=== PATIENT | male | born 1960 | race Caucasian/White ===

== ENCOUNTER 2018-02-20 20:37 | Emergency (ER) | payer OTHER ==
--- OUTSIDE RECORDS SUMMARY | 2018-02-20 20:40 | XMS REPORT | Clinical Summary ---
:1960 Author Organization [facility] Address [address] [place] [address] Phone Care Team Providers Name Role Phone Unavailable Primary Care Provider Unavailable Allergies No Known Allergies Current Medications Prescription Sig. Disp. Refills Start Date End Date Status potassium chloride Take 1 tablet (20 30 tablet 0 09/18/2017 Active SA mEq total) by (K-DUR,KLOR-CON) mouth daily. 20 MEQ tablet fluticasone-salmet Inhale 1 puff by 1 Inhaler 0 09/17/2017 Active valeriano (ADVAIR) mouth via inhaler 100-50 mcg/dose every 12 (twelve) diskus inhaler hours. aspirin 81 MG EC Take 1 tablet (81 30 tablet 0 01/30/2018 Active tablet mg total) by 9 mouth daily. atorvastatin Take 1 tablet (80 30 tablet 0 01/29/2018 Active (LIPITOR) 80 MG mg total) by 9 tablet mouth nightly. carvedilol (COREG) Take 1 tablet 60 tablet 0 01/29/2018 Active 12.5 MG tablet (12.5 mg total) 9 by mouth 2 (two) times daily. eplerenone Take 1 tablet (25 30 tablet 0 01/30/2018 Active (INSPRA) 25 MG mg total) by 9 tablet mouth daily. furosemide (LASIX) Take 1 tablet (20 30 tablet 0 01/30/2018 Active 20 MG tablet mg total) by 9 mouth daily. lisinopril Take 1 tablet (20 30 tablet 0 01/30/2018 Active (PRINIVIL,ZESTRIL) mg total) by 9 20 MG tablet mouth daily. ticagrelor Take 1 tablet (90 60 tablet 0 01/29/2018 Active (BRILINTA) 90 mg mg total) by Tab tablet mouth 2 (two) times daily. oseltamivir Take 75 mg by Discontinued (TAMIFLU) 75 MG mouth 2 (two) 8 capsule times daily. azithromycin Take 1 tablet 5 tablet 0 09/17/2017 (ZITHROMAX) 500 MG (500 mg total) by 8 tablet mouth daily for 5 days Antibiotics for pneumonia. lisinopril Take 1 tablet (10 30 tablet 0 09/17/2017 Discontinued (PRINIVIL,ZESTRIL) mg total) by 8 10 MG tablet mouth daily For blood pressure, heart. aspirin 81 MG EC Take 1 tablet (81 30 tablet 0 09/18/2017 Discontinued tablet mg total) by 8 mouth daily. atorvastatin Take 1 tablet (40 30 tablet 0 09/17/2017 Discontinued (LIPITOR) 40 MG mg total) by 8 tablet mouth nightly For cholesterol. furosemide (LASIX) Take 1 tablet (20 60 tablet 0 09/17/2017 Discontinued 20 MG tablet mg total) by 8 mouth 2 (two) times daily Water pill. predniSONE Take 1 tablet (20 3 tablet 0 09/18/2017 (DELTASONE) 20 MG mg total) by 8 tablet mouth daily for 3 days Steroids for lungs. mometasone-formote Inhale 2 puffs by 1 Inhaler 0 09/17/2017 Discontinued rol (DULERA) 200-5 mouth via inhaler 8 mcg/actuation 2 (two) times inhaler daily. codeine-guaifenesi Take 10 mLs by 120 mL 0 09/17/2017 n (GUAIFENESIN AC) mouth every 6 8 10-100 mg/5 mL (six) hours as liquid needed for Cough for up to 10 days. Max Daily Amount: 40 mLs Active Problems Problem Noted Date JOLYNN (obstructive sleep apnea) 10/23/2017 Overview: Last Assessment & Plan: Pt with JOLYNN on HST with obesity , hyepertension, daytime sleepiness, non restorative sleep Discussed with patient the pathophysiology of sleep apnea, and treatment options Pt agreeable to use CPAP, will order Auto-CPAP @ 7-18 Will follow up with download in 6 weeks, to confirm compliance and adequacy of current settings Pt to call if any difficulties with CPAP use NSTEMI (non-ST elevated myocardial infarction) ([facility]) 2017 Coronary artery disease involving [place] coronary artery of [place] heart 09/16 without angina pectoris Hypertension, essential 09/16/2017 Systolic and diastolic CHF, chronic ([facility]) 09/16/2017 Tobacco abuse 09/16/2017 Severe obesity (BMI 35.0-39.9) ([facility]) 09/16/2017 Resolved Problems Problem Noted Date Resolved Date Chest pain, unspecified type 01/25/2018 02/11/2018 Multifocal pneumonia 09/16/2017 02/11/2018 Infection due to human metapneumovirus (hMPV) 09/16/2017 02/11/2018 Encounters Date Type Specialty Care Team Description 02/11/2018 Office Visit Cardiology Alexandra Mccurdy Chronic combined WHARF HAND systolic (congestive) and diastolic (congestive) heart failure ([facility]) (Primary Dx) 01/26/2018 Procedure Pass 01/26/2018 Surgery Humberto Lin L CATH & PCI MD 01/25/2018 - [facility] Cardiology Eliud Schuster Chest pain, unspecified 01/29/2018 Encounter MD Blu type (Primary Humberto Lin, Dx);Coronary artery MD disease involving [place], [facility] [place] coronary artery D of [place] heart without angina pectoris;Hypertension, essential;Severe obesity (BMI 35.0-39.9) ([facility]);Tobacco abuse;Acute on chronic systolic heart failure ([facility]);JOLYNN (obstructive sleep apnea) 01/25/2018 Orders Only General Internal Medicine 09/15/2017 - [facility] Cardiology Eliud Schuster Severe persistent 09/17/2017 Encounter MD Blu asthma with acute Peng, exacerbation (Primary Magdalena Hughes, Dx);Upper respiratory MD tract infection, Paxton Montiel, unspecified type;Acute MD on chronic systolic heart failure ([facility]);Infection due to human metapneumovirus (hMPV);Multifocal pneumonia;Chronic obstructive pulmonary disease, unspecified COPD type ([facility]);Hypertension, essential;Severe obesity (BMI 35.0-39.9) ([facility]) 09/15/2017 Orders Only General Internal Medicine after 02/19/2017 Social History Tobacco Use Types Packs/Day Years Used Date Former Smoker Quit: 02/11/2003 Smokeless Tobacco: Former User Comments: quitted 12 years ago Alcohol Use Drinks/Week oz/Week Comments Yes rarely Sex Assigned at Date Recorded Not on file Last Filed Vital Signs Vital Sign Reading Time Taken Blood Pressure 125/76 02/11/2018 3:27 PM CDT Pulse 70 02/11/2018 3:27 PM CDT Temperature 35.9 C (96.7 F) 02/11/2018 3:27 PM CDT Respiratory Rate 16 02/11/2018 3:27 PM CDT Oxygen Saturation 98% 02/11/2018 3:27 PM CDT Inhaled Oxygen Concentration - - Weight 124.9 kg (275 lb 4.8 oz) 02/11/2018 3:27 PM CDT Height 182.9 cm (6') 02/11/2018 3:27 PM CDT Body Mass Index 37.34 02/11/2018 3:27 PM CDT Plan of Treatment Health Maintenance Due Date Last Done Comments INFLUENZA VACCINE 05/17/2018 Implants Implanted Type Area Ceiling Cleaner Device Expiration Model / Identifier Date Serial / Lot Promus Premier Stents-C N/A: [employer]ON 09/21/2018 [id number] / Implanted: Qty: 1 on 01/26/2018 by Humberto Lin MD [employer] / [id number] Promus Premier Stents-C N/A: [place] 05/18/2018 [id number] / Implanted: Qty: 1 on 01/26/2018 by [facility]umberto Lin [facility] [employer] [employer] / [id number] Promus Premier Stents-C N/A: [place] 11/22/2018 [id number] / Implanted: Qty: 1 on 01/26/2018 by Humberto Lin MD [facility] [employer] / [id number] Promus Premier Stents-C N/A: [place] 09/13/2018 [id number] / Implanted: Qty: 1 on 01/26/2018 by Humberto Lin MD [facility] [employer] / [id number] Procedures Procedure Name Priority Date/Time Associated Diagnosis Comments L CATH & PCI 01/26/2018 9:31 AM NSTEMI (non-ST CDT elevated myocardial infarction) (HCC) CRITICAL CARE Routine 01/25/2018 4:37 PM Results for this CDT procedure are in the results section. after 02/19/2017 Results VASCULAR DIAGRAM -SCAN (02/10/2018 3:41 PM)Only the most recent of2 resultswithin the time period is included.RHYTHM STRIP - SCAN (02/02/2018 6:20 AM)Only the most recent of3 resultswithin the time period is included.CBC ( Hemogram only) (01/29/2018 3:20 AM)Only the most recent of4 resultswithin the time period is included. Component Value Ref Range WBC 7.8 3.5 - 10.5 K/L RBC 4.80 4.63 - 6.08 M/L Hemoglobin 14.0 13.7 - 17.5 GM/DL Hematocrit 41.0 40.1 - 51.0 % MCV 85.4 79.0 - 92.2 fL MCH 29.2 25.7 - 32.2 pg MCHC 34.1 32.3 - 36.5 GM/DL RDW 13.0 11.6 - 14.4 % Platelets 227 150 - 450 K/CU MM MPV 10.1 9.4 - 12.4 fL nRBC 0 0 - 0 /100 WBC Specimen Performing Laboratory Blood - Arm, [address] [address] Magnesium (01/29/2018 3:20 AM)Only the most recent of6 resultswithin the time period is included. Component Value Ref Range Magnesium 2.3 1.6 - 2.6 mg/dL Specimen Performing Laboratory Blood - Arm, [address] [address] Basic Metabolic Panel (01/29/2018 3:20 AM)Only the most recent of8 resultswithin the time period is included. Component Value Ref Range Sodium 139 136 - 145 meq/L Potassium 3.8 3.5 - 5.1 meq/L Chloride 106 98 - 107 meq/L CO2 24 22 - 29 meq/L BUN 28 (H) 7 - 21 mg/dL Creatinine 0.86 0.57 - 1.25 mg/dL Glucose 123 (H) 70 - 105 mg/dL Calcium 9.1 8.4 - 10.2 mg/dL EGFR 91Comment: ESTIMATED GFR IS NOT ACCURATE mL/min/1.73 sq m CREATININE CLEARANCE IN PREDICTING GLOMERULAR FILTRATION RATE. ESTIMATED GFR IS NOT APPLICABLE FOR DIALYSIS PATIENTS. Specimen Performing Laboratory Blood - Arm, Right [address] [address] CARDIAC CATH REPORT - SCAN (01/27/2018 1:01 PM)POC-Glucose meter (01/26/2018 10 :06 PM) Component Value Ref Range POC-Glucose Meter 91Comment: TESTED AT [address] 70 - 110 mg/dL [id number] Specimen Performing Laboratory Blood [address] [address] ECHOCARDIOGRAM REPORT - SCAN (01/26/2018 6:50 PM)Only the most recent of2 resultswithin the time period is included.POC ACTIVATED CLOTTING TIME (2017 3:19 PM)Only the most recent of5 resultswithin the time period is included. Component Value Ref Range Activated Clotting Time 136Comment: TESTED AT [address] sec [address] Specimen Performing Laboratory Blood [address] [address] 2D Echo W/Doppler(CW/PW/Color) (01/26/2018 2:45 PM)Only the most recent of2 resultswithin the time period is included. Component Value Ref Range Ejection Fraction Specimen Performing Laboratory 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 Clinical History HLD HTN CAD MD (2010) CARDIAC STENTS X2 (2010) S/P CARDIAC STENTS X4 (01/26/18) Contrast Medium: Definity. Height: 72 inches Weight: 119.75 kg (264 lbs) BSA: 2.4 m^2 BMI: 35.8 kg/m^2 HR: 76 bpm BP: 158/92 mmHg Summary The left ventricle is chamber size (by PSLAX dimension) is normal (male - LVIDd 4.2-5.8cm) . Mild concentric LV hypertrophy. The following segment(s) appear akinetic: apex, inferior wall . The other segments are hypokinetic. Global LV systolic function wykeexjg-lx-tmsvnhjf reduced . Estimated LVEF by qualitative assessment is moderately reduced (30-34%) . LV endocardium is adequately visualized with IV ultrasound enhancing agent. No evidence of pericardial effusion. Unable to estimate peak systolic PA pressure; inadequate TR velocity signal. The estimated RA pressure by IVC dynamics 0-5mmHg . Signature Findings Left Ventricle The left ventricle is chamber size (by PSLAX dimension) is normal (male - LVIDd 4.2-5.8cm) . Mild concentric LV hypertrophy. The following segment(s) appear akinetic: apex, inferior wall . The other segments are hypokinetic. Global LV systolic function aphrmfmi-li-nqvkhxdo reduced . Estimated LVEF by qualitative assessment is moderately reduced (30-34%) . LV endocardium is adequately visualized with IV ultrasound enhancing agent. Left AtriumLA size is normal . Right VentricleNormal right ventricle structure and function. Right Atrium Normal right atrium. Aortic Valve Mild AoV cusp thickening. Mitral Valve Mild MV leaflet thickening. Tricuspid ValveA trace of tricuspid regurgitation. Unable to estimate peak systolic PA pressure; inadequate TR velocity signal. AortaAortic root size (SInus of Valsalva diameter) is normal . PericardiumNo evidence of pericardial effusion. IVC/SVC/PA/PV/PleuralThe estimated RA pressure by IVC dynamics 0-5mmHg . Chambers/Structures Left Atrium LA Dimension: 3.54 cmLA Area: 17.35 cm^2 LA Volume: 47.18 ml LA Vol. Index: 20 ml/m^2 Left Ventricle LVIDd: 5.36 cm LV Septum Diastolic: 1.42 cm LV PW Diastolic: 1.31 cm LVOT Diameter: 2.08 cm Aorta Ao Root S of Marcelina.: 3.34 cm Doppler/Quantitative Measurements LVOT Peak Velocity: 1.26 m/s Peak Gradient: 6.31 mmHg Mean Velocity: 0.68 m/s Mean Gradient: 2.3 mmHg LVOT Diameter: 2.08 cmLVOT VTI: 16.77 cm LVOT Area: 3.4 cm^2 LVOT SV:56.95 ml LVOT CO: 4.33 l/min LVOT CI: 1.8 l/min/m^2 Procedure Note Interface, External Ris In - 01/26/2018 6:09 PM CDT Transthoracic Echocardiography Report (TTE) Demographics Patient Name CULLEN JOSUE Date of Study 01/26/2018 EMILY Gender Male Visit Number [id number] Race Room Number [id number] Number Date of 1960 Referring Physician JAX SHETTY Age 57 year(s) 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 Clinical History HLD HTN CAD MD (2010) CARDIAC STENTS X2 (2010) S/P CARDIAC STENTS X4 (01/26/18) Contrast Medium: Definity. Height: 72 inches Weight: 119.75 kg (264 lbs) BSA: 2.4 m^2 BMI: 35.8 kg/m^2 HR: 76 bpm BP: 158/92 mmHg Summary The left ventricle is chamber size (by PSLAX dimension) is normal (male - LVIDd 4.2-5.8cm) . Mild concentric LV hypertrophy. The following segment(s) appear akinetic: apex, inferior wall . The other segments are hypokinetic. Global LV systolic function lbpdxvxv-qv-ixukuhpf reduced . Estimated LVEF by qualitative assessment is moderately reduced (30-34%) . LV endocardium is adequately visualized with IV ultrasound enhancing agent. No evidence of pericardial effusion. Unable to estimate peak systolic PA pressure; inadequate TR velocity signal. The estimated RA pressure by IVC dynamics 0-5mmHg . Signature Findings Left Ventricle The left ventricle is chamber size (by PSLAX dimension) is normal (male - LVIDd 4.2-5.8cm) . Mild concentric LV hypertrophy. The following segment(s) appear akinetic: apex, inferior wall . The other segments are hypokinetic. Global LV systolic function ogjrwnad-ag-ckkqinga reduced . Estimated LVEF by qualitative assessment is moderately reduced (30-34%) . LV endocardium is adequately visualized with IV ultrasound enhancing agent. Left Atrium LA size is normal . Right Ventricle Normal right ventricle structure and function. Right Atrium Normal right atrium. Aortic Valve Mild AoV cusp thickening. Mitral Valve Mild MV leaflet thickening. Tricuspid Valve A trace of tricuspid regurgitation. Unable to estimate peak systolic PA pressure; inadequate TR velocity signal. Aorta Aortic root size (SInus of Valsalva diameter) is normal . Pericardium No evidence of pericardial effusion. IVC/SVC/PA/PV/Pleural The estimated RA pressure by IVC dynamics 0-5mmHg . Chambers/Structures Left Atrium LA Dimension: 3.54 cm LA Area: 17.35 cm^2 LA Volume: 47.18 ml LA Vol. Index: 20 ml/m^2 Left Ventricle LVIDd: 5.36 cm LV Septum Diastolic: 1.42 cm LV PW Diastolic: 1.31 cm LVOT Diameter: 2.08 cm Aorta Ao Root S of Marcelina.: 3.34 cm Doppler/Quantitative Measurements LVOT Peak Velocity: 1.26 m/s Peak Gradient: 6.31 mmHg Mean Velocity: 0.68 m/s Mean Gradient: 2.3 mmHg LVOT Diameter: 2.08 cm LVOT VTI: 16.77 cm LVOT Area: 3.4 cm^2 LVOT SV:56.95 ml LVOT CO: 4.33 l/min LVOT CI: 1.8 l/min/m^2 PT/aPTT (01/26/2018 5:14 AM)Only the most recent of3 resultswithin the time period is included. Component Value Ref Range Protime 14.0 11.7 - 14.7 seconds INR 1.1 <=5.9 PTT 49.4 (H) 22.5 - 36.0 seconds Specimen [place] [address] Narrative RECOMMENDED COUMADIN/WARFARIN INR THERAPY RANGES STANDARD DOSE: 2.0 - 3.0 Includes: PROPHYLAXIS for venous thrombosis, systemic embolization; TREATMENT for venous thrombosis and/or pulmonary embolus. HIGH RISK: Target INR is 2.5-3.5 for patients with mechanical heart valves. Troponin I (01/26/2018 5:14 AM)Only the most recent of6 resultswithin the time period is included. Component Value Ref Range Troponin I 1.57 (HH) 0.00 - 0.03 ng/mL Specimen Performing Laboratory Blood [address] [address] Narrative Troponin I (TnI) levels must be interpreted in the context of the presenting symptoms and the clinical findings. Elevated TnI levels indicate myocardial damage, but are not specific for ischemic heart disease. Elevated TnI levels are seen in patients with other cardiac conditions (including myocarditis and congestive heart failure), and slight TnI elevations occur in patients with other conditions, including sepsis, renal failure, acidosis, acute neurological disease, and persistent tachyarrhythmia. Critical Care (01/25/2018 4:37 PM) Narrative Eliud Schuster MD 01/25/20184:37 PM Critical Care Performed by: ELIUD SCHUSTER Authorized by: ELIUD SCHUSTER Total critical care time: 42 minutes Critical care time was exclusive of separately billable procedures and treating other patients and teaching time. Critical care was necessary to treat or prevent imminent or life-threatening deterioration of the following conditions: circulatory failure and cardiac failure. Critical care was time spent personally by me on the following activities: development of treatment plan with patient or surrogate, discussions with consultants, discussions with primary provider, interpretation of cardiac output measurements, evaluation of patient's response to treatment, examination of patient, obtaining history from patient or surrogate, ordering and performing treatments and interventions, ordering and review of laboratory studies, ordering and review of radiographic studies, pulse oximetry, re-evaluation of patient's condition and review of old charts. XR chest 1 view portable/bedside (01/25/2018 3:40 PM)Only the most recent of2 resultswithin the time period is included. Specimen Performing Laboratory GE RIS Narrative FINAL REPORT Chest, 1 view, 01/25/2018 3:41 PM. History: Chest pain. Comparison: 2017. Discussion:The cardiomediastinal silhouette and pulmonary vasculature are within normal limits for a portable exam. The lungs are clear without evidence of consolidation or effusion.Multiple old left rib fractures are again noted. IMPRESSION: No acute cardiopulmonary abnormality. Signed: Eliud Harper MD Report Verified Date/Time:01/25/2018 15:49:11 Reading Location: [facility] Mammo Reading Room Procedure Note Interface, External Ris In - 01/25/2018 3:51 PM CDT FINAL REPORT Chest, 1 view, 01/25/2018 3:41 PM. History: Chest pain. Comparison: 2017. Discussion: The cardiomediastinal silhouette and pulmonary vasculature are within normal limits for a portable exam. The lungs are clear without evidence of consolidation or effusion. Multiple old left rib fractures are again noted. IMPRESSION: No acute cardiopulmonary abnormality. Signed: Eliud Harper MD Report Verified Date/Time: 01/25/2018 15:49:11 Reading Location: [facility] Mammo Reading Room with platelet count + automated diff (01/25/2018 3:03 PM)Only the most recent of4 resultswithin the time period is included. Component Value Ref Range WBC 7.5 3.5 - 10.5 K/L RBC 5.54 4.63 - 6.08 M/L Hemoglobin 16.0 13.7 - 17.5 GM/DL Hematocrit 47.4 40.1 - 51.0 % MCV 85.6 79.0 - 92.2 fL MCH 28.9 25.7 - 32.2 pg MCHC 33.8 32.3 - 36.5 GM/DL RDW 13.1 11.6 - 14.4 % Platelets 258 150 - 450 K/CU MM MPV 9.6 9.4 - 12.4 fL nRBC 0 0 - 0 /100 WBC % Neutros 57 % % Lymphs 31 % % Monos 9 % % Eos 2 % % Baso 1 % # Neutros 4.30 1.78 - 5.38 K/L # Lymphs 2.36 1.32 - 3.57 K/L # Monos 0.69 0.30 - 0.82 K/L # Eos 0.12 0.04 - 0.54 K/L # Baso 0.05 0.01 - 0.08 K/L Immature Granulocytes-Relative 0 0 - 1 % Specimen Performing Laboratory Blood - Arm, [address] [address] CBC with platelet count + automated diff (01/25/2018 3:03 PM)Only the most recent of4 resultswithin the time period is included. Specimen Performing Laboratory Blood Narrative The following orders were created for panel order CBC with platelet count + automated diff. Procedure Abnormality Status --------- ------ CBC with platelet count ...[[id number]]Final result Please view results for these tests on the individual orders. B-type Natriuretic Factor (BNP) (01/25/2018 3:03 PM)Only the most recent of2 resultswithin the time period is included. Component Value Ref Range BNP 148 (H) 0 - 100 pg/mL Specimen Performing Laboratory Blood - Arm, [address] [address] ECG 12 lead (01/25/2018 2:39 PM)Only the most recent of2 resultswithin the time period is included. Specimen Performing Laboratory GE MUSE Narrative Ventricular Rate 76 BPM Atrial Rate 76 BPM P-R Interval 182 ms QRS Duration 160 ms Q-T Interval 442 ms QTC Calculation(Bazett) 497 ms P [place] 41 degrees R [place] -28 degrees T [place] 180 degrees Normal sinus rhythm Left bundle branch block Prolonged QT Abnormal ECG When compared with ECG of 15-SEP-2017 17:38, Ventricular rate has decreased from [address] more elevated now anterior leads Confirmed by MD TOBAR YOCHAI ([id number]) on 01/26/2018 6:25:26 AM Procedure Note Interface, External Ris In - 01/26/2018 6:25 AM CDT Ventricular Rate 76 BPM Atrial Rate 76 BPM P-R Interval 182 ms QRS Duration 160 ms Q-T Interval 442 ms QTC Calculation(Bazett) 497 ms P [place] 41 degrees R [place] -28 degrees T [place] 180 degrees Normal sinus rhythm Left bundle branch block Prolonged QT Abnormal ECG When compared with ECG of 15-SEP-2017 17:38, Ventricular rate has decreased from [address] more elevated now anterior leads Confirmed by MD TOBAR YOCHAI ([id number]) on 01/26/2018 6:25:26 AM Sputum Culture + Gram Stain (09/17/2017 10:15 AM) Component Value Ref Range Result Oropharyngeal contamination, specimen rejected. Recollect requested. Gram Stain Result 1+ WBCs Gram Stain Result 2+ gram variable coccobacilli Specimen Performing Laboratory Sputum - Expectorated [address] [address] Hepatic function panel (09/17/2017 4:28 AM) Component Value Ref Range Protein, Total 6.6 6.0 - 8.3 gm/dL Albumin 3.6 3.5 - 5.0 g/dL Total Bilirubin 0.6 0.2 - 1.2 mg/dL Bilirubin, Direct 0.2 0.1 - 0.5 mg/dL Alkaline Phosphatase 43 40 - 150 U/L AST 51 (H) 5 - 34 U/L ALT 62 (H) 6 - 55 U/L Specimen Performing Laboratory Blood - Arm, Left [address] [address] Creatine Kinase (CK), Total and MB (09/16/2017 5:26 AM)Only the most recent of3 resultswithin the time period is included. Component Value Ref Range Total CK 428 (H) 29 - 200 U/L CK-MB 1.0 0.0 - 6.6 ng/mL MB Relative Index 0.2 % Specimen Performing Laboratory Blood - Arm, Right [address] [address] Narrative CK-MB Reference Range: <6.7Normal 6.7-10.0Borderline >10.0 Abnormal Respiratory Panel [facility] (09/16/2017 2:33 AM) Component Value Ref Range Human Metapneumovirus Detected (A) Not detected, Inconclusive Rhinovirus Not detected Not detected, Inconclusive Influenza A Not detected Not detected, Inconclusive Influenza A subtype H1 Not detected Not detected, Inconclusive Influenza A Subtype H3 Not detected Not detected, Inconclusive Influenza A Subtype H1-2009 Not detected Not detected, Inconclusive Influenza B Not detected Not detected, Inconclusive Respiratory Syncytial Virus Not detected Not detected, Inconclusive Parainfluenza Virus 1 Not detected Not detected, Inconclusive Parainfluenza Virus 2 Not detected Not detected, Inconclusive Parainfluenza virus 3 Not detected Not detected, Inconclusive Parainfluenza Virus 4 Not detected Not detected, Inconclusive Adenovirus Not detected Not detected, Inconclusive Coronavirus 229E Not detected Not detected, Inconclusive Coronavirus HKU1 Not detected Not detected, Inconclusive Coronavirus NL63 Not detected Not detected, Inconclusive Coronavirus OC43 Not detected Not detected, Inconclusive Bordetella Pertussis Not detected Not detected, Inconclusive Chlamydophila Pneumoniae Not detected Not detected, Inconclusive Mycoplasma Pneumoniae Not detected Not detected, Inconclusive Specimen Performing Laboratory Nasopharyngeal [address] [address] [address] chest for pulmonary embolus (09/16/2017 12:48 AM) Specimen Performing Laboratory [facility] (formerly [facility] RIS Narrative FINAL REPORT CT, CHEST WITH IV CONTRAST- PE TEST DESIGN INDICATION: "dyspnea" COMPARISON: None TECHNIQUE: Contrast enhanced CT examination of the chest in the pulmonary arterial phase from the bases to the apices. Orthogonal reformatted images as well as coronal maximum intensity projection images were obtained. DOSE REDUCTION: Dose modulation, iterative reconstruction, and/or weight-based adjustment of the mA/kV was utilized to reduce the radiation dose to as low as reasonably achievable. FINDINGS: No pulmonary embolism. Cardiomegaly. No pathologic adenopathy in the chest per CT size criteria. Multiple tree-in-bud opacities in the lungs, worse in the inferior portion of the right upper lobe and left upper lobe. More consolidative changes present in the left upper lobe with air bronchograms. Findings are compatible with a multifocal bronchopneumonia. Visualized portion of the upper abdomen shows no acute abnormality. Hepatic steatosis. Multiple remote left-sided rib fractures. IMPRESSION: No pulmonary embolism. Multifocal bilateral bronchopneumonia. 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 Orthogonal reformatted images as well as coronal maximum intensity projection images were obtained. DOSE REDUCTION: Dose modulation, iterative reconstruction, and/or weight-based adjustment of the mA/kV was utilized to reduce the radiation dose to as low as reasonably achievable. FINDINGS: No pulmonary embolism. Cardiomegaly. No pathologic adenopathy in the chest per CT size criteria. Multiple tree-in-bud opacities in the lungs, worse in the inferior portion of the right upper lobe and left upper lobe. More consolidative changes present in the left upper lobe with air bronchograms. Findings are compatible with a multifocal bronchopneumonia. Visualized portion of the upper abdomen shows no acute abnormality. Hepatic steatosis. Multiple remote left-sided rib fractures. IMPRESSION: No pulmonary embolism. Multifocal bilateral bronchopneumonia. Signed: Mariluz May MD Report Verified Date/Time: 09/16/2017 01:07:05 Reading Location: [facility] B1 C013X Ortho Consult Reading Room D-dimer (09/15/2017 11:56 PM) Component Value Ref Range D-Dimer, Quant 1.33 (H) <0.50 MG/L FEU Specimen Performing Laboratory [place] [address] Narrative Intended Use: The D-Dimer Assay can be used to aid in the diagnosis of Deep Vein Thrombosis (DVT) and Pulmonary Embolism Disease (PED). In patients with low pre-test probability, various studies concerning STA Liatest D-dimer test have reported that with a cutoff value of 0.50 MG/L FEU, the Negative Predictive Value (NPV) regarding the exclusion of thrombosis is within 95-100% range. Legionella antigen, urine (09/15/2017 11:46 PM) Component Value Ref Range Legionella Urine Antigen Negative - see commentComment: Negative for L. pneumophila serogroup 1 antigen, suggesting no recent or current infection with this serogroup. Legionellosis cannot be ruled out since other serogroups and species may cause disease. Specimen [place] [address] Urinalysis w/ Microscopic (09/15/2017 11:46 PM) Component Value Ref Range Color, UA Yellow Clarity, UA Hazy Specific [place], UA 1.024 1.001 - 1.035 pH, UA 6.0 5.0 - 8.0 Protein, UA 50 mg/dL (A) Negative Glucose, UA Negative Negative Ketones, UA 10 mg/dL (A) Negative Bilirubin, UA Negative Negative Blood, UA Negative Negative Nitrite, UA Negative Negative Leukocytes, UA Negative Negative Urobilinogen, UA 8.0 (H) 0.2 - 1.0 mg/dL RBC, UA 0 /HPF WBC, UA 1 /HPF Mucus Many Amorphous Crystals Rare Specimen Source Specimen [place] [address] Blood culture (09/15/2017 10:04 PM)Only the most recent of2 resultswithin the time period is included. Component Value Ref Range Result No growth in 5 days Specimen Performing Laboratory Blood - Arm, Right [place] [id number] Influenza antigen A & B (Rapid) (09/15/2017 6:43 PM) Component Value Ref Range Rapid Influenza A Antigen Negative Negative, Inconclusive Rapid influenza B Antigen Negative Negative, Inconclusive Specimen Performing Laboratory Nasopharyngeal [place] [address] after 02/19/2017
--- OUTSIDE RECORDS SUMMARY | 2018-02-20 20:41 | XMS REPORT ---
:1960 Author Organization [facility] Address [address] [place] [address] Care Team Providers Name Role Phone ELIUD SCHUSTER Unavailable Unavailable Problems This patient has no known problems. Allergies, Adverse Reactions, Alerts This patient has no known allergies or adverse reactions. Medications This patient has no known medications. Results Test Description Test Time Test Comments Text Results Atomic Results Result Comments MAGNESIUM 2018-01-29 05:33:00 Test Item Value Reference Range Comments MAGNESIUM (BEAKER) (test hest=719) 2.3 mg/dL 1.6-2.6 BASIC METABOLIC [id number] 05:33:00 Test Item Value Reference Range Comments SODIUM (BEAKER) (test 139 meq/L 136-145 oskk=242) POTASSIUM (BEAKER) (test 3.8 meq/L 3.5-5.1 ltan=308) CHLORIDE (BEAKER) (test 106 meq/L 98-107 xsmj=945) CO2 (BEAKER) (test 24 meq/L 22-29 rioh=196) BLOOD UREA NITROGEN 28 mg/dL 7-21 (BEAKER) (test pcxf=443) CREATININE (BEAKER) (test 0.86 mg/dL 0.57-1.25 yhlv=446) GLUCOSE RANDOM (BEAKER) 123 mg/dL 70-105 (test pxvr=950) CALCIUM (BEAKER) (test 9.1 mg/dL 8.4-10.2 szqe=562) EGFR (BEAKER) (test 91 mL/min/1.73 sq m ESTIMATED GFR IS NOT hejb=3109) ACCURATE CREATININE CLEARANCE IN PREDICTING GLOMERULAR FILTRATION RATE. ESTIMATED GFR IS NOT APPLICABLE FOR DIALYSIS PATIENTS. CBC (HEMOGRAM ONLY)2018-01-29 05:08:00 Test Item Value Reference Range Comments WHITE BLOOD CELL COUNT (BEAKER) (test wtrp=579) 7.8 K/ L 3.5-10.5 RED BLOOD CELL COUNT (BEAKER) (test kbkn=963) 4.80 M/ L 4.63-6.08 HEMOGLOBIN (BEAKER) (test rlaq=144) 14.0 GM/DL 13.7-17.5 HEMATOCRIT (BEAKER) (test gxfe=566) 41.0 % 40.1-51.0 MEAN CORPUSCULAR VOLUME (BEAKER) (test tvbq=261) 85.4 fL 79.0-92.2 MEAN CORPUSCULAR HEMOGLOBIN (BEAKER) (test 29.2 pg 25.7-32.2 raqk=495) MEAN CORPUSCULAR HEMOGLOBIN CONC (BEAKER) (test 34.1 GM/DL 32.3-36.5 xfpa=746) RED CELL DISTRIBUTION WIDTH (BEAKER) (test 13.0 % 11.6-14.4 fsqy=983) PLATELET COUNT (BEAKER) (test qqov=027) 227 K/CU MM 150-450 MEAN PLATELET VOLUME (BEAKER) (test lmbd=531) 10.1 fL 9.4-12.4 NUCLEATED RED BLOOD CELLS (BEAKER) (test 0 /100 WBC 0-0 nrsu=895) [id number] 05:59:00 Test Item Value Reference Range Comments MAGNESIUM (BEAKER) (test tyfn=129) 2.4 mg/dL 1.6-2.6 BASIC METABOLIC [id number] 05:59:00 Test Item Value Reference Range Comments SODIUM (BEAKER) (test 141 meq/L 136-145 nlfd=129) POTASSIUM (BEAKER) (test 3.8 meq/L 3.5-5.1 poaw=407) CHLORIDE (BEAKER) (test 106 meq/L 98-107 jccy=638) CO2 (BEAKER) (test 25 meq/L 22-29 mjga=440) BLOOD UREA NITROGEN 26 mg/dL 7-21 (BEAKER) (test yzlq=507) CREATININE (BEAKER) (test 0.97 mg/dL 0.57-1.25 rmsb=765) GLUCOSE RANDOM (BEAKER) 135 mg/dL 70-105 (test auro=438) CALCIUM (BEAKER) (test 9.4 mg/dL 8.4-10.2 ybun=177) EGFR (BEAKER) (test 79 mL/min/1.73 sq m ESTIMATED GFR IS NOT kgmb=8668) ACCURATE CREATININE CLEARANCE IN PREDICTING GLOMERULAR FILTRATION RATE. ESTIMATED GFR IS NOT APPLICABLE FOR DIALYSIS PATIENTS. CBC (HEMOGRAM ONLY)2018-01-28 05:39:00 Test Item Value Reference Range Comments WHITE BLOOD CELL COUNT (BEAKER) (test xzdv=201) 8.1 K/ L 3.5-10.5 RED BLOOD CELL COUNT (BEAKER) (test nhha=320) 4.81 M/ L 4.63-6.08 HEMOGLOBIN (BEAKER) (test xydn=541) 14.0 GM/DL 13.7-17.5 HEMATOCRIT (BEAKER) (test xvtg=606) 41.9 % 40.1-51.0 MEAN CORPUSCULAR VOLUME (BEAKER) (test lecz=351) 87.1 fL 79.0-92.2 MEAN CORPUSCULAR HEMOGLOBIN (BEAKER) (test 29.1 pg 25.7-32.2 njnl=614) MEAN CORPUSCULAR HEMOGLOBIN CONC (BEAKER) (test 33.4 GM/DL 32.3-36.5 lufs=639) RED CELL DISTRIBUTION WIDTH (BEAKER) (test 13.3 % 11.6-14.4 gtdl=807) PLATELET COUNT (BEAKER) (test jkex=243) 216 K/CU MM 150-450 MEAN PLATELET VOLUME (BEAKER) (test uoku=578) 9.9 fL 9.4-12.4 NUCLEATED RED BLOOD CELLS (BEAKER) (test 0 /100 WBC 0-0 xkiz=484) [id number] 06:27:00 Test Item Value Reference Range Comments MAGNESIUM (BEAKER) (test 2.3 mg/dL 1.6-2.6 Specimen slightly hemolyzed gogf=987) BASIC METABOLIC [id number] 06:27:00 Test Item Value Reference Range Comments SODIUM (BEAKER) (test 140 meq/L 136-145 fhek=056) POTASSIUM (BEAKER) (test 3.6 meq/L 3.5-5.1 Specimen slightly keiq=952) hemolyzed CHLORIDE (BEAKER) (test 106 meq/L 98-107 immb=124) CO2 (BEAKER) (test 25 meq/L 22-29 hipa=989) BLOOD UREA NITROGEN 25 mg/dL 7-21 (BEAKER) (test oqtp=945) CREATININE (BEAKER) (test 1.17 mg/dL 0.57-1.25 Specimen slightly swwq=886) hemolyzed GLUCOSE RANDOM (BEAKER) 136 mg/dL 70-105 (test ucdx=540) CALCIUM (BEAKER) (test 9.0 mg/dL 8.4-10.2 iaqz=870) EGFR (BEAKER) (test 64 mL/min/1.73 sq m ESTIMATED GFR IS NOT tban=2119) ACCURATE CREATININE CLEARANCE IN PREDICTING GLOMERULAR FILTRATION RATE. ESTIMATED GFR IS NOT APPLICABLE FOR DIALYSIS PATIENTS. CBC (HEMOGRAM ONLY)2018-01-27 04:51:00 Test Item Value Reference Range Comments WHITE BLOOD CELL COUNT (BEAKER) (test rggs=726) 8.9 K/ L 3.5-10.5 RED BLOOD CELL COUNT (BEAKER) (test mfmh=951) 4.59 M/ L 4.63-6.08 HEMOGLOBIN (BEAKER) (test vbwa=731) 13.4 GM/DL 13.7-17.5 HEMATOCRIT (BEAKER) (test auuw=014) 39.5 % 40.1-51.0 MEAN CORPUSCULAR VOLUME (BEAKER) (test wayh=120) 86.1 fL 79.0-92.2 MEAN CORPUSCULAR HEMOGLOBIN (BEAKER) (test 29.2 pg 25.7-32.2 wdtw=619) MEAN CORPUSCULAR HEMOGLOBIN CONC (BEAKER) (test 33.9 GM/DL 32.3-36.5 hksc=928) RED CELL DISTRIBUTION WIDTH (BEAKER) (test 13.3 % 11.6-14.4 fqad=231) PLATELET COUNT (BEAKER) (test dcky=870) 226 K/CU MM 150-450 MEAN PLATELET VOLUME (BEAKER) (test kdzs=918) 10.3 fL 9.4-12.4 NUCLEATED RED BLOOD CELLS (BEAKER) (test 0 /100 WBC 0-0 eaqm=035) POCT-GLUCOSE [id number] 22:08:00 Test Item Value Reference Range Comments POC-GLUCOSE METER (BEAKER) 91 mg/dL 70-110 TESTED AT [facility] [address] (test naoo=2973) [facility] [address] [id number] 15:25:00 Test Item Value Reference Range Comments ACTIVATED CLOTTING TIME 136 sec TESTED AT [address] ([facility]) (test kccm=866) [place] [address] [id number] 14:24:00 Test Item Value Reference Range Comments ACTIVATED CLOTTING TIME 169 sec TESTED AT [address] ([facility]) (test nreo=233) [place] [address] [id number] 11:29:00 Test Item Value Reference Range Comments ACTIVATED CLOTTING TIME 252 sec TESTED AT [address] ([facility]) (test jjuc=663) [place] [address] [id number] 11:29:00 Test Item Value Reference Range Comments ACTIVATED CLOTTING TIME 252 sec TESTED AT [address] ([facility]) (test jfvu=850) [place] [address] [id number] 10:22:00 Test Item Value Reference Range Comments ACTIVATED CLOTTING TIME 290 sec TESTED AT [address] ([facility]) (test xqve=258) [place] [address] TROPONIN [id number] 06:20:00 Test Item Value Reference Range Comments TROPONIN I ([facility]) (test pubp=164) 1.57 ng/mL 0.00-0.03 Troponin I (TnI) levels must be interpreted [...] failure, acidosis, acute neurological disease, and persistent tachyarrhythmia.[id number] 05:45:00 Test Item Value Reference Range Comments [facility] (test kipr=009) 14.0 seconds 11.7-14.7 INR ([facility]) (test mtbs=149) 1.1 <=5.9 PARTIAL THROMBOPLASTIN TIME (BEAKER) (test 49.4 seconds 22.5-36.0 ndtc=875) RECOMMENDED COUMADIN/WARFARIN INR THERAPY RANGESSTANDARD DOSE: 2.0 - 3.0 Includes: PROPHYLAXIS forvenous thrombosis, systemic embolization; TREATMENT for venous thrombosis and/or pulmonary embolus.HIGH RISK: Target INR is 2.5-3.5 for patients with mechanical heart valves.[id number] 05:45:00 Test Item Value Reference Range Comments MAGNESIUM (BEAKER) (test urex=486) 2.3 mg/dL 1.6-2.6 BASIC METABOLIC [id number] 05:45:00 Test Item Value Reference Range Comments SODIUM (BEAKER) (test 139 meq/L 136-145 ydod=204) POTASSIUM (BEAKER) (test 3.8 meq/L 3.5-5.1 uteu=660) CHLORIDE (BEAKER) (test 104 meq/L 98-107 jrla=622) CO2 (BEAKER) (test 25 meq/L 22-29 bgel=104) BLOOD UREA NITROGEN 24 mg/dL 7-21 (BEAKER) (test idva=696) CREATININE (BEAKER) (test 0.81 mg/dL 0.57-1.25 irnu=910) GLUCOSE RANDOM (BEAKER) 107 mg/dL 70-105 (test dcth=175) CALCIUM (BEAKER) (test 9.5 mg/dL 8.4-10.2 ueie=510) EGFR (BEAKER) (test 98 mL/min/1.73 sq m ESTIMATED GFR IS NOT irgd=7962) ACCURATE CREATININE CLEARANCE IN PREDICTING GLOMERULAR FILTRATION RATE. ESTIMATED GFR IS NOT APPLICABLE FOR DIALYSIS PATIENTS. CBC (HEMOGRAM ONLY)2018-01-26 05:35:00 Test Item Value Reference Range Comments WHITE BLOOD CELL COUNT (BEAKER) (test ovcb=596) 7.3 K/ L 3.5-10.5 RED BLOOD CELL COUNT (BEAKER) (test bmrv=393) 5.19 M/ L 4.63-6.08 HEMOGLOBIN (BEAKER) (test nubz=766) 15.3 GM/DL 13.7-17.5 HEMATOCRIT (BEAKER) (test zngt=530) 43.8 % 40.1-51.0 MEAN CORPUSCULAR VOLUME (BEAKER) (test phfn=074) 84.4 fL 79.0-92.2 MEAN CORPUSCULAR HEMOGLOBIN (BEAKER) (test 29.5 pg 25.7-32.2 wzxt=641) MEAN CORPUSCULAR HEMOGLOBIN CONC (BEAKER) (test 34.9 GM/DL 32.3-36.5 wkyg=047) RED CELL DISTRIBUTION WIDTH (BEAKER) (test 13.1 % 11.6-14.4 mwlj=508) PLATELET COUNT (BEAKER) (test xcoh=432) 232 K/CU MM 150-450 MEAN PLATELET VOLUME (BEAKER) (test mejb=028) 10.0 fL 9.4-12.4 NUCLEATED RED BLOOD CELLS (BEAKER) (test 0 /100 WBC 0-0 qvda=112) TROPONIN [id number] 23:20:00 Test Item Value Reference Range Comments TROPONIN I (BEAKER) (test gdsx=738) 1.69 ng/mL 0.00-0.03 Troponin I (TnI) levels must be interpreted [...] failure, acidosis, acute neurological disease, and persistent tachyarrhythmia.[id number] 23:05:00 Test Item Value Reference Range Comments PROTIME (BEAKER) (test gdro=209) 14.2 seconds 11.7-14.7 INR (BEAKER) (test nesk=190) 1.1 <=5.9 PARTIAL THROMBOPLASTIN TIME (BEAKER) (test 44.2 seconds 22.5-36.0 ghdu=481) RECOMMENDED COUMADIN/WARFARIN INR THERAPY RANGESSTANDARD DOSE: 2.0 - 3.0 Includes: PROPHYLAXIS forvenous thrombosis, systemic embolization; TREATMENT for venous thrombosis and/or pulmonary embolus.HIGH RISK: Target INR is 2.5-3.5 for patients with mechanical heart valves.TROPONIN [id number] 15:59:00 Test Item Value Reference Range Comments TROPONIN I (BEAKER) (test juzf=898) 0.62 ng/mL 0.00-0.03 Troponin I (TnI) levels must be interpreted [...] failure, acidosis, acute neurological disease, and persistent tachyarrhythmia.B-TYPE NATRIURETIC FACTOR (BNP) 15:55:00 Test Item Value Reference Range Comments B-TYPE NATRIURETIC PEPTIDE (BEAKER) (test 148 pg/mL 0-100 bcws=950) RAD, CHEST, 1 VIEW, NON [id number] 15:49:00Reason for exam:->CHEST PAINFINAL REPORT Chest, 1 view, 01/25/2018 3:41 PM. History: Chest pain. Comparison: 2017. Discussion: The cardiomediastinal silhouette and pulmonary vasculature are within normal limits for a portable exam. The lungs are clear without evidence of consolidation or effusion. Multiple old left rib fractures are again noted. IMPRESSION: No acute cardiopulmonary abnormality. Signed: Eliud Harper MDReport Verified Date/Time : 01/25/2018 15:49:11 Reading Location: [facility] Reading Room [id number] 15:47:00 Test Item Value Reference Range Comments MAGNESIUM (BEAKER) (test cnjn=966) 2.4 mg/dL 1.6-2.6 BASIC METABOLIC [id number] 15:47:00 Test Item Value Reference Range Comments SODIUM (BEAKER) (test 139 meq/L 136-145 tzul=196) POTASSIUM (BEAKER) (test 4.1 meq/L 3.5-5.1 atul=458) CHLORIDE (BEAKER) (test 105 meq/L 98-107 iklp=790) CO2 (BEAKER) (test 25 meq/L 22-29 ibxc=630) BLOOD UREA NITROGEN 21 mg/dL 7-21 (BEAKER) (test uckg=461) CREATININE (BEAKER) (test 0.95 mg/dL 0.57-1.25 yilk=841) GLUCOSE RANDOM (BEAKER) 104 mg/dL 70-105 (test kjxc=063) CALCIUM (BEAKER) (test 9.4 mg/dL 8.4-10.2 aguh=594) EGFR (BEAKER) (test 81 mL/min/1.73 sq m ESTIMATED GFR IS NOT lsni=6561) ACCURATE CREATININE CLEARANCE IN PREDICTING GLOMERULAR FILTRATION RATE. ESTIMATED GFR IS NOT APPLICABLE FOR DIALYSIS PATIENTS. [id number] 15:37:00 Test Item Value Reference Range Comments PROTIME (BEAKER) (test aodb=492) 13.4 seconds 11.7-14.7 INR (BEAKER) (test sibw=605) 1.0 <=5.9 PARTIAL THROMBOPLASTIN TIME (BEAKER) (test 31.9 seconds 22.5-36.0 rshx=548) RECOMMENDED COUMADIN/WARFARIN INR THERAPY RANGESSTANDARD DOSE: 2.0 - 3.0 Includes: PROPHYLAXIS forvenous thrombosis, systemic embolization; TREATMENT for venous thrombosis and/or pulmonary embolus.HIGH RISK: Target INR is 2.5-3.5 for patients with mechanical heart valves.CBC W/PLT COUNT & AUTO [id number] 15:28:00 Test Item Value Reference Range Comments WHITE BLOOD CELL COUNT (BEAKER) (test ooxn=373) 7.5 K/ L 3.5-10.5 RED BLOOD CELL COUNT (BEAKER) (test fcve=706) 5.54 M/ L 4.63-6.08 HEMOGLOBIN (BEAKER) (test bunc=025) 16.0 GM/DL 13.7-17.5 HEMATOCRIT (BEAKER) (test xnqy=257) 47.4 % 40.1-51.0 MEAN CORPUSCULAR VOLUME (BEAKER) (test liny=815) 85.6 fL 79.0-92.2 MEAN CORPUSCULAR HEMOGLOBIN (BEAKER) (test 28.9 pg 25.7-32.2 xert=534) MEAN CORPUSCULAR HEMOGLOBIN CONC (BEAKER) (test 33.8 GM/DL 32.3-36.5 flce=630) RED CELL DISTRIBUTION WIDTH (BEAKER) (test 13.1 % 11.6-14.4 gztj=420) PLATELET COUNT (BEAKER) (test vmww=454) 258 K/CU MM 150-450 MEAN PLATELET VOLUME (BEAKER) (test fabr=170) 9.6 fL 9.4-12.4 NUCLEATED RED BLOOD CELLS (BEAKER) (test 0 /100 WBC 0-0 wryz=772) NEUTROPHILS RELATIVE PERCENT (BEAKER) (test 57 % hiyi=217) LYMPHOCYTES RELATIVE PERCENT (BEAKER) (test 31 % razl=890) MONOCYTES RELATIVE PERCENT (BEAKER) (test 9 % pskw=379) EOSINOPHILS RELATIVE PERCENT (BEAKER) (test 2 % tajm=918) BASOPHILS RELATIVE PERCENT (BEAKER) (test 1 % ugho=323) NEUTROPHILS ABSOLUTE COUNT (BEAKER) (test 4.30 K/ L 1.78-5.38 kyut=632) LYMPHOCYTES ABSOLUTE COUNT (BEAKER) (test 2.36 K/ L 1.32-3.57 igfr=403) MONOCYTES ABSOLUTE COUNT (BEAKER) (test 0.69 K/ L 0.30-0.82 jpld=151) EOSINOPHILS ABSOLUTE COUNT (BEAKER) (test 0.12 K/ L 0.04-0.54 vgnu=538) BASOPHILS ABSOLUTE COUNT (BEAKER) (test 0.05 K/ L 0.01-0.08 goxn=121) IMMATURE GRANULOCYTES-RELATIVE PERCENT (BEAKER) 0 % 0-1 (test obdw=2737) BLOOD [id number] 05:01:00 Test Item Value Reference Range Comments CULTURE (BEAKER) (test sclh=0381) No growth in 5 days BLOOD [id number] 05:01:00 Test Item Value Reference Range Comments CULTURE (BEAKER) (test djre=8002) No growth in 5 days SPUTUM CULTURE + GRAM [id number] 21:30:00 Test Item Value Reference Range Comments CULTURE (BEAKER) (test Oropharyngeal contamination, pquu=6642) specimen rejected. Recollect requested. GRAM STAIN RESULT (BEAKER) 1+ WBCs (test elzy=0705) GRAM STAIN RESULT (BEAKER) 2+ gram variable coccobacilli (test hrwo=36572) HEPATIC FUNCTION [id number] 05:56:00 Test Item Value Reference Range Comments TOTAL PROTEIN (BEAKER) (test pzht=798) 6.6 gm/dL 6.0-8.3 ALBUMIN (BEAKER) (test lpky=7506) 3.6 g/dL 3.5-5.0 BILIRUBIN TOTAL (BEAKER) (test lkbc=618) 0.6 mg/dL 0.2-1.2 BILIRUBIN DIRECT (BEAKER) (test yjzb=315) 0.2 mg/dL 0.1-0.5 ALKALINE PHOSPHATASE (BEAKER) (test kwcq=618) 43 U/L 40-150 AST (SGOT) (BEAKER) (test dlak=754) 51 U/L 5-34 ALT (SGPT) (BEAKER) (test nuzg=936) 62 U/L 6-55 BASIC METABOLIC [id number] 05:56:00 Test Item Value Reference Range Comments SODIUM (BEAKER) (test 139 meq/L 136-145 xvrv=637) POTASSIUM (BEAKER) (test 3.4 meq/L 3.5-5.1 yfeo=910) CHLORIDE (BEAKER) (test 105 meq/L 98-107 nabr=059) CO2 (BEAKER) (test 24 meq/L 22-29 jfuq=773) BLOOD UREA NITROGEN 25 mg/dL 7-21 (BEAKER) (test vwve=969) CREATININE (BEAKER) (test 0.78 mg/dL 0.57-1.25 uuxx=806) GLUCOSE RANDOM (BEAKER) 122 mg/dL 70-105 (test agch=191) CALCIUM (BEAKER) (test 8.5 mg/dL 8.4-10.2 acse=587) EGFR (BEAKER) (test 103 mL/min/1.73 sq m ESTIMATED GFR IS NOT nuiw=2861) ACCURATE CREATININE CLEARANCE IN PREDICTING GLOMERULAR FILTRATION RATE. ESTIMATED GFR IS NOT APPLICABLE FOR DIALYSIS PATIENTS. CBC W/PLT COUNT & AUTO [id number] 05:04:00 Test Item Value Reference Range Comments WHITE BLOOD CELL COUNT (BEAKER) (test nzxx=711) 7.1 K/ L 3.5-10.5 RED BLOOD CELL COUNT (BEAKER) (test iffr=239) 5.00 M/ L 4.63-6.08 HEMOGLOBIN (BEAKER) (test rsti=707) 14.3 GM/DL 13.7-17.5 HEMATOCRIT (BEAKER) (test lanj=795) 42.0 % 40.1-51.0 MEAN CORPUSCULAR VOLUME (BEAKER) (test xbdm=124) 84.0 fL 79.0-92.2 MEAN CORPUSCULAR HEMOGLOBIN (BEAKER) (test 28.6 pg 25.7-32.2 wwtx=888) MEAN CORPUSCULAR HEMOGLOBIN CONC (BEAKER) (test 34.0 GM/DL 32.3-36.5 temu=157) RED CELL DISTRIBUTION WIDTH (BEAKER) (test 12.9 % 11.6-14.4 dfcl=441) PLATELET COUNT (BEAKER) (test sgur=375) 210 K/CU MM 150-450 MEAN PLATELET VOLUME (BEAKER) (test owou=652) 10.3 fL 9.4-12.4 NUCLEATED RED BLOOD CELLS (BEAKER) (test 0 /100 WBC 0-0 aefs=594) NEUTROPHILS RELATIVE PERCENT (BEAKER) (test 58 % psmb=057) LYMPHOCYTES RELATIVE PERCENT (BEAKER) (test 34 % klbf=167) MONOCYTES RELATIVE PERCENT (BEAKER) (test 7 % pdws=093) EOSINOPHILS RELATIVE PERCENT (BEAKER) (test 1 % ryld=412) BASOPHILS RELATIVE PERCENT (BEAKER) (test 0 % iczs=821) NEUTROPHILS ABSOLUTE COUNT (BEAKER) (test 4.11 K/ L 1.78-5.38 nuhg=864) LYMPHOCYTES ABSOLUTE COUNT (BEAKER) (test 2.44 K/ L 1.32-3.57 pjqm=230) MONOCYTES ABSOLUTE COUNT (BEAKER) (test 0.51 K/ L 0.30-0.82 tboc=355) EOSINOPHILS ABSOLUTE COUNT (BEAKER) (test 0.04 K/ L 0.04-0.54 uasj=823) BASOPHILS ABSOLUTE COUNT (BEAKER) (test 0.02 K/ L 0.01-0.08 hlla=085) IMMATURE GRANULOCYTES-RELATIVE PERCENT (BEAKER) 0 % 0-1 (test nubb=8614) RESPIRATORY PANEL [id number] 11:46:00 Test Item Value Reference Range Comments HUMAN METAPNEUMOVIRUS (BEAKER) (test Detected Not detected, Inconclusive yrfw=2012) RHINOVIRUS (BEAKER) (test ngkg=1918) Not detected Not detected, Inconclusive INFLUENZA A (BEAKER) (test Not detected Not detected, Inconclusive srbe=1939) INFLUENZA A SUBTYPE H1 (BEAKER) Not detected Not detected, Inconclusive (test pckl=9629) INFLUENZA A SUBTYPE H3 (BEAKER) Not detected Not detected, Inconclusive (test fmqf=3419) INFLUENZA A SUBTYPE H1-2009 (BEAKER) Not detected Not detected, Inconclusive (test zhvl=8580) INFLUENZA B (BEAKER) (test Not detected Not detected, Inconclusive iota=7046) RESPIRATORY SYNCYTIAL VIRUS (BEAKER) Not detected Not detected, Inconclusive (test bolo=3863) PARAINFLUENZA VIRUS 1 (BEAKER) (test Not detected Not detected, Inconclusive ixtd=0423) PARAINFLUENZA VIRUS 2 (BEAKER) (test Not detected Not detected, Inconclusive kgjs=0873) PARAINFLUENZA VIRUS 3 (BEAKER) (test Not detected Not detected, Inconclusive gmki=7011) PARAINFLUENZA VIRUS 4 (BEAKER) (test Not detected Not detected, Inconclusive qcyr=6814) ADENOVIRUS (BEAKER) (test acju=1309) Not detected Not detected, Inconclusive CORONAVIRUS 229E (BEAKER) (test Not detected Not detected, Inconclusive qmfi=8458) CORONAVIRUS HKU1 (BEAKER) (test Not detected Not detected, Inconclusive ajjt=9659) CORONAVIRUS NL63 (BEAKER) (test Not detected Not detected, Inconclusive cwhx=5224) CORONAVIRUS OC43 (BEAKER) (test Not detected Not detected, Inconclusive slcf=3920) BORDETELLA PERTUSSIS (BEAKER) (test Not detected Not detected, Inconclusive qckz=2857) CHLAMYDOPHILA PNEUMONIAE (BEAKER) Not detected Not detected, Inconclusive (test otea=2642) MYCOPLASMA PNEUMONIAE (BEAKER) (test Not detected Not detected, Inconclusive aynh=3971) CBC W/PLT COUNT & AUTO [id number] 06:59:00 Test Item Value Reference Range Comments WHITE BLOOD CELL COUNT (BEAKER) (test jgrz=283) 3.8 K/ L 3.5-10.5 RED BLOOD CELL COUNT (BEAKER) (test rwpj=721) 5.27 M/ L 4.63-6.08 HEMOGLOBIN (BEAKER) (test wese=290) 15.0 GM/DL 13.7-17.5 HEMATOCRIT (BEAKER) (test xkyw=921) 43.3 % 40.1-51.0 MEAN CORPUSCULAR VOLUME (BEAKER) (test qyhe=970) 82.2 fL 79.0-92.2 MEAN CORPUSCULAR HEMOGLOBIN (BEAKER) (test 28.5 pg 25.7-32.2 bnsz=231) MEAN CORPUSCULAR HEMOGLOBIN CONC (BEAKER) (test 34.6 GM/DL 32.3-36.5 wrmx=658) RED CELL DISTRIBUTION WIDTH (BEAKER) (test 12.7 % 11.6-14.4 qkmt=432) PLATELET COUNT (BEAKER) (test tboo=043) 220 K/CU MM 150-450 MEAN PLATELET VOLUME (BEAKER) (test fefx=465) 10.0 fL 9.4-12.4 NUCLEATED RED BLOOD CELLS (BEAKER) (test 0 /100 WBC 0-0 ujxd=091) NEUTROPHILS RELATIVE PERCENT (BEAKER) (test 77 % gifz=338) LYMPHOCYTES RELATIVE PERCENT (BEAKER) (test 18 % rtpf=918) MONOCYTES RELATIVE PERCENT (BEAKER) (test 4 % ikgt=226) EOSINOPHILS RELATIVE PERCENT (BEAKER) (test 0 % blfu=769) BASOPHILS RELATIVE PERCENT (BEAKER) (test 0 % myrf=846) NEUTROPHILS ABSOLUTE COUNT (BEAKER) (test 2.93 K/ L 1.78-5.38 ojki=881) LYMPHOCYTES ABSOLUTE COUNT (BEAKER) (test 0.70 K/ L 1.32-3.57 gcwy=099) MONOCYTES ABSOLUTE COUNT (BEAKER) (test 0.15 K/ L 0.30-0.82 bqyi=418) EOSINOPHILS ABSOLUTE COUNT (BEAKER) (test 0.00 K/ L 0.04-0.54 iqwe=756) BASOPHILS ABSOLUTE COUNT (BEAKER) (test 0.01 K/ L 0.01-0.08 duzw=066) IMMATURE GRANULOCYTES-RELATIVE PERCENT (BEAKER) 0 % 0-1 (test lzzo=7659) CREATINE KINASE (CK), TOTAL AND [id number] 06:47:00 Test Item Value Reference Range Comments CREATINE KINASE TOTAL (BEAKER) (test scxy=511) 428 U/L 29-200 CREATINE KINASE-MB (BEAKER) (test qnwe=902) 1.0 ng/mL 0.0-6.6 CREATINE KINASE-MB INDEX (BEAKER) (test tiex=606) 0.2 % CK-MB Reference Range:<6.7 Normal6.7-10.0 Borderline>10.0 AbnormalTROPONIN [id number] 06:47:00 Test Item Value Reference Range Comments TROPONIN I (BEAKER) (test vfhu=540) 0.01 ng/mL 0.00-0.03 Troponin I (TnI) levels must be interpreted [...] failure, acidosis, acute neurological disease, and persistent tachyarrhythmia.[id number] 06:35:00 Test Item Value Reference Range Comments MAGNESIUM (BEAKER) (test qjcs=840) 2.2 mg/dL 1.6-2.6 BASIC METABOLIC [id number] 06:35:00 Test Item Value Reference Range Comments SODIUM (BEAKER) (test 134 meq/L 136-145 voyj=072) POTASSIUM (BEAKER) (test 3.8 meq/L 3.5-5.1 rhqd=199) CHLORIDE (BEAKER) (test 101 meq/L 98-107 rweo=127) CO2 (BEAKER) (test 23 meq/L 22-29 eecb=511) BLOOD UREA NITROGEN 17 mg/dL 7-21 (BEAKER) (test kowv=351) CREATININE (BEAKER) (test 0.83 mg/dL 0.57-1.25 miup=871) GLUCOSE RANDOM (BEAKER) 187 mg/dL 70-105 (test ikyj=996) CALCIUM (BEAKER) (test 8.5 mg/dL 8.4-10.2 cmiv=372) EGFR (BEAKER) (test 95 mL/min/1.73 sq m ESTIMATED GFR IS NOT xrpl=3911) ACCURATE CREATININE CLEARANCE IN PREDICTING GLOMERULAR FILTRATION RATE. ESTIMATED GFR IS NOT APPLICABLE FOR DIALYSIS PATIENTS. LEGIONELLA ANTIGEN, [id number] 06:26:00 Test Item Value Reference Range Comments L. PNEUMOPHILA SEROGP 1 Negative - see Negative for L. UR AG (BEAKER) (test comment pneumophila serogroup 1 zgcg=9664) antigen, suggesting no recent or current infection with this serogroup. Legionellosis cannot be ruled out since other serogroups and species may cause disease. URINALYSIS W/ [id number] 02:13:00 Test Item Value Reference Range Comments COLOR (BEAKER) (test jokw=603) Yellow CLARITY (BEAKER) (test znga=847) Hazy SPECIFIC GRAVITY UA (BEAKER) (test wrtq=675) 1.024 1.001-1.035 PH UA (BEAKER) (test jqzo=530) 6.0 5.0-8.0 PROTEIN UA (BEAKER) (test faox=383) 50 mg/dL Negative GLUCOSE UA (BEAKER) (test rmtz=935) Negative Negative KETONES UA (BEAKER) (test ehiv=780) 10 mg/dL Negative BILIRUBIN UA (BEAKER) (test fjsi=178) Negative Negative BLOOD UA (BEAKER) (test dybd=127) Negative Negative NITRITE UA (BEAKER) (test dvge=850) Negative Negative LEUKOCYTE ESTERASE UA (BEAKER) (test kgld=205) Negative Negative UROBILINOGEN UA (BEAKER) (test kefw=573) 8.0 mg/dL 0.2-1.0 RBC UA (BEAKER) (test wnav=981) 0 /HPF WBC UA (BEAKER) (test ttce=281) 1 /HPF MUCUS (BEAKER) (test jztn=6731) Many AMORPHOUS CRYSTALS (BEAKER) (test orld=0525) Rare SOURCE(BEAKER) (test bcne=4561) CT, CHEST WITH IV CONTRAST- PE TEST [id number] 01:07:00FINAL REPORT CT, CHEST WITH IV CONTRAST- PE TEST DESIGN INDICATION: "dyspnea"COMPARISON: None TECHNIQUE: Contrast enhanced CT examination of the chest in the pulmonary arterial phase from the bases to the apices. Orthogonal reformatted images as well as coronal maximum intensity projection images were obtained. DOSE REDUCTION: Dose modulation, iterative reconstruction, and/ orweight-based adjustment of the mA/kV was utilized to reduce the radiation dose to as low as reasonably achievable. FINDINGS: No pulmonary embolism.Cardiomegaly.No pathologic adenopathy in the chest perCT size criteria. Multiple tree-in-bud opacities in the lungs, worse in the inferior portion of the right upper lobe and left upper lobe. More consolidative changes present in the left upper lobe with air bronchograms. Findings are compatible with a multifocal bronchopneumonia. Visualized portion of the upper abdomen shows no acute abnormality.Hepatic steatosis. Multiple remote left-sided rib fractures. IMPRESSION:No pulmonary embolism.Multifocal bilateral bronchopneumonia. Signed: Mariluz May MDReport Verified Date/Time: 2017 01:07:05 Reading Location: [address] Ortho Consult Reading Room CREATINE KINASE (CK), TOTAL AND [id number] 00:55:00 Test Item Value Reference Range Comments CREATINE KINASE TOTAL (BEAKER) (test yphz=872) 463 U/L 29-200 CREATINE KINASE-MB (BEAKER) (test tedv=919) 0.9 ng/mL 0.0-6.6 CREATINE KINASE-MB INDEX (BEAKER) (test jqse=674) 0.2 % CK-MB Reference Range:<6.7 Normal6.7-10.0 Borderline>10.0 AbnormalTROPONIN [id number] 00:55:00 Test Item Value Reference Range Comments TROPONIN I (BEAKER) (test gyoy=664) 0.01 ng/mL 0.00-0.03 Troponin I (TnI) levels must be interpreted [...] failure, acidosis, acute neurological disease, and persistent tachyarrhythmia.[id number] 00:30:00 Test Item Value Reference Range Comments D-DIMER QUANTITATIVE (BEAKER) (test uvhi=639) 1.33 MG/L FEU <0.50 Intended Use: The D-Dimer Assay can be used to aid in the diagnosis of Deep Vein Thrombosis (DVT) and Pulmonary Embolism Disease (PED).In patients with low pre-test probability, various studies concerning STA Liatest D-dimer test have reported that with a cutoff value of 0.50 MG/L FEU, the Negative Predictive Value (NPV) regarding the exclusion of thrombosis is within 95-100% range.RAPID INFLUENZA A&B [id number] 19:17:00 Test Item Value Reference Range Comments RAPID INFLUENZA A AG (BEAKER) (test Negative Negative, Inconclusive xaxn=0273) RAPID INFLUENZA B AG (BEAKER) (test Negative Negative, Inconclusive qmqo=7295) CREATINE KINASE (CK), TOTAL AND [id number] 19:12:00 Test Item Value Reference Range Comments CREATINE KINASE TOTAL (BEAKER) (test gtxs=648) 458 U/L 29-200 CREATINE KINASE-MB (BEAKER) (test cyat=184) 1.1 ng/mL 0.0-6.6 CREATINE KINASE-MB INDEX (BEAKER) (test fnlm=731) 0.2 % CK-MB Reference Range:<6.7 Normal6.7-10.0 Borderline>10.0 AbnormalTROPONIN [id number] 19:12:00 Test Item Value Reference Range Comments TROPONIN I (BEAKER) (test ielh=859) 0.02 ng/mL 0.00-0.03 Troponin I (TnI) levels must be interpreted [...] failure, acidosis, acute neurological disease, and persistent tachyarrhythmia.B-TYPE NATRIURETIC FACTOR (BNP) 19:11:00 Test Item Value Reference Range Comments B-TYPE NATRIURETIC PEPTIDE (BEAKER) (test 315 pg/mL 0-100 ebqp=281) BASIC METABOLIC [id number] 19:06:00 Test Item Value Reference Range Comments SODIUM (BEAKER) (test 135 meq/L 136-145 xmqy=154) POTASSIUM (BEAKER) (test 3.4 meq/L 3.5-5.1 csks=075) CHLORIDE (BEAKER) (test 101 meq/L 98-107 ipgt=108) CO2 (BEAKER) (test 25 meq/L 22-29 fvwt=684) BLOOD UREA NITROGEN 17 mg/dL 7-21 (BEAKER) (test xhvb=058) CREATININE (BEAKER) (test 0.84 mg/dL 0.57-1.25 gmne=335) GLUCOSE RANDOM (BEAKER) 144 mg/dL 70-105 (test oxpu=544) CALCIUM (BEAKER) (test 8.9 mg/dL 8.4-10.2 ecvt=772) EGFR (BEAKER) (test mL/min/1.73 sq m INSUFFICIENT CLINICAL DATA ttxu=9536) TO CALCULATE ESTIMATED GFR. RAD, CHEST, 1 VIEW, NON [id number] 18:58:00Reason for exam:->CHEST PAINShould this be performed at the bedside?->YesFINAL REPORT Chest, 1 view Clinical history: CHEST PAIN Comparison: None Discussion : There is no pneumothorax or significant pleural effusion. There are patchy bibasilar opacities, left worse than right, suggestive of atelectasis or possibly evolving pneumonitis. The cardiac silhouette is enlarged with mild perihilar edema. No acute osseous abnormality. Chronic left rib fractures are noted. Signed: Maxime Duarte MDReport Verified Date/Time: 09/15/2017 18:58:50 Reading Location:[place] [id number] Ortho Consult Reading Room CBC W/PLT COUNT & AUTO [id number] 18:34:00 Test Item Value Reference Range Comments WHITE BLOOD CELL COUNT (BEAKER) (test dpjt=545) 5.9 K/ L 3.5-10.5 RED BLOOD CELL COUNT (BEAKER) (test jjrh=078) 5.36 M/ L 4.63-6.08 HEMOGLOBIN (BEAKER) (test vxmy=400) 15.6 GM/DL 13.7-17.5 HEMATOCRIT (BEAKER) (test tonx=507) 44.5 % 40.1-51.0 MEAN CORPUSCULAR VOLUME (BEAKER) (test fnbj=819) 83.0 fL 79.0-92.2 MEAN CORPUSCULAR HEMOGLOBIN (BEAKER) (test 29.1 pg 25.7-32.2 yfxc=065) MEAN CORPUSCULAR HEMOGLOBIN CONC (BEAKER) (test 35.1 GM/DL 32.3-36.5 afcp=536) RED CELL DISTRIBUTION WIDTH (BEAKER) (test 12.8 % 11.6-14.4 jtrj=207) PLATELET COUNT (BEAKER) (test scgp=997) 196 K/CU MM 150-450 MEAN PLATELET VOLUME (BEAKER) (test eobx=558) 9.8 fL 9.4-12.4 NUCLEATED RED BLOOD CELLS (BEAKER) (test 0 /100 WBC 0-0 yxmr=298) NEUTROPHILS RELATIVE PERCENT (BEAKER) (test 73 % sfyg=928) LYMPHOCYTES RELATIVE PERCENT (BEAKER) (test 18 % siqy=351) MONOCYTES RELATIVE PERCENT (BEAKER) (test 9 % fsab=666) EOSINOPHILS RELATIVE PERCENT (BEAKER) (test 0 % urju=143) BASOPHILS RELATIVE PERCENT (BEAKER) (test 0 % gmok=028) NEUTROPHILS ABSOLUTE COUNT (BEAKER) (test 4.31 K/ L 1.78-5.38 uwds=346) LYMPHOCYTES ABSOLUTE COUNT (BEAKER) (test 1.06 K/ L 1.32-3.57 nozm=832) MONOCYTES ABSOLUTE COUNT (BEAKER) (test 0.52 K/ L 0.30-0.82 nkab=157) EOSINOPHILS ABSOLUTE COUNT (BEAKER) (test 0.01 K/ L 0.04-0.54 blku=795) BASOPHILS ABSOLUTE COUNT (BEAKER) (test 0.02 K/ L 0.01-0.08 nvre=082) IMMATURE GRANULOCYTES-RELATIVE PERCENT (BEAKER) 0 % 0-1 (test pobg=7608)
[2018-02-20] MEDS ORDERED: MIDAZOLAM HCL 2 MG/2 ML INJ ONE (20:54)
[2018-02-20] MEDS ORDERED: RSI MEDICATION KIT IV ONE (20:54)
[2018-02-20 20:58] LABS: Arterial Blood Carboxyhemoglob 0.4 % (0-1.5); Blood Gas Oxyhemoglobin 90.7 % (94-97)
[2018-02-20 21:02] LABS: Absolute Lymphocytes (CBC) 4.5 K/uL (0.7-4.9); Absolute Monocytes 0.9 K/uL (0.1-1.3); Absolute Neutrophil 6.4 K/uL (1.8-8.0); Basophils % 0.4 % (0-1.3); Eosinophils % 1.3 % (0-4.4); Hematocrit 50.3 % (39.6-49.0); Lymphocytes % 37.1 % (15.3-44.8); MCH 29.2 pg (27.0-35.0); MCV 87.8 fL (80-100); MPV 8.4 fL (7.6-11.3); Monocytes % 7.7 % (3.3-12.3); RBC Red Blood Cell Count 5.73 M/uL (4.33-5.43)
[2018-02-20 21:09] LABS: Protime INR 1.01
[2018-02-20 21:24] LABS: Albumin 3.8 g/dL (3.4-5.0); Bilirubin Direct 0.1 mg/dL (0-0.2); Bilirubin Total 0.5 mg/dL (0.2-1.0); CKMB Creatine Kinase MB 1.7 ng/mL (0.3-3.6); Magnesium 2.3 mg/dL (1.8-2.4); Potassium 4.5 mmol/L (3.5-5.1); Protein, Total 7.7 g/dL (6.4-8.2)
--- NOTE | 2018-02-20 21:27 | RAD REPORT ---
EXAM DESCRIPTION: Hernandez Single View02/20/2018 8:59 pm CLINICAL HISTORY: Chest pain COMPARISON: none FINDINGS: Artifact overlies the chest obscuring detail. Mild bilateral pulmonary opacities are suspected. . The heart is mildly enlarged. IMPRESSION: Mild bilateral interstitial lung opacities may represent mild interstitial pulmonary ed oliver
--- NOTE | 2018-02-20 21:40 | ER ---
Nurse's Notes [facility] Name: Cullen Escobedo Age: 57 yrs Sex: Male : 1960 Arrival Date: 02/20/2018 Time: 20:38 Bed 3 Private MD: Diagnosis: Altered mental status, unspecified;Abnormal electrocardiogram [ECG] [EKG]-left bundle, code stemi;Anoxic brain damage, not elsewhere classified-mild;Obesity, unspecified;Unspecified diastolic (congestive) heart failure Presentation: 02/20 20:33 Presenting complaint: EMS states: they were toned out for report of pt having collapsed bb at home and was unresponsive, pt had hx of recent LA 4 weeks ago and was stented, on their arrival family had applied pt's life vest which shocked him x 2. On their arrival they started CPR and applied their AED which shocked him x 4 he then had ROSC. Transition of care: patient was not received from another setting of care. Onset of symptoms was February 20, 2018. Risk Assessment: Do you want to hurt yourself or someone else? Patient reports no desire to harm self or others. Initial Sepsis Screen: Does the patient meet any 2 criteria? No. Patient's initial sepsis screen is negative. Does the patient have a suspected source of infection? No. Patient's initial sepsis screen is negative. Care prior to arrival: CPR performed by EMS was defibrillated IV initiated. 18 GA, in the left antecubital area, Glucose check: 152 Oxygen administered. via a non-rebreather mask. 20:33 Method Of Arrival: EMS: [facility] 20:33 Acuity: TU 1 bb Historical: - Allergies: 21:02 No Known Allergies; bb - Home Meds: 23:22 Plavix 75 mg Oral tab 1 tab once daily [Active]; aa1 - PMHx: 23:22 Hypertension; Myocardial infarction; aa1 - PSHx: 23:22 Heart stents; aa1 - Immunization history:: Adult Immunizations up to date. - Social history:: Smoking status: unknown. - Family history:: not pertinent. - Ebola Screening: : No symptoms or risks identified at this time. Screenin:07 Abuse screen: Denies threats or abuse. Nutritional screening: No deficits noted. bb Tuberculosis screening: No symptoms or risk factors identified. Fall Risk Secondary diagnosis (15 points) IV access (20 points). Ambulatory Aid- None/Bed Rest/Nurse Assist (0 pts). Mental Status- Overestimates/Forgets Limitations (15 pts.). Total Mccoy Fall Scale indicates High Risk Score (45 or more points). Fall prevention measures have been instituted. Side Rails Up X 2 Frequent Obs/Assessments Occuring Family Present and informed to notify staff if the need to leave the bedside. Assessment: 20:35 General: Appears distressed, Behavior is unresponsive. Pain: Unable to use pain scale. jd3 Patient is unresponsive. Neuro: Level of Consciousness is unresponsive, Oriented to none. Cardiovascular: Heart tones S1 S2 present Pulses are all present. Rhythm is sinus rhythm with PACs. Respiratory: Airway nonrebreather in place Respiratory effort is shallow, weak, Respiratory pattern is snoring Parent/caregiver reports the patient having shortness of breath. Respiratory: Airway nonrebreather in place Respiratory effort is shallow, weak, Respiratory pattern is snoring Parent/caregiver reports the patient having shortness of breath. GI: Abdomen is round. : No signs and/or symptoms were reported regarding the genitourinary system. EENT: No signs and/or symptoms were reported regarding the EENT system. Derm: Skin is intact, Skin is diaphoretic, Skin is pale, Skin temperature is warm. 21:00 Reassessment: Patient and/or family updated on plan of care and expected duration. Pain jd3 level reassessed. pt stating difficulty breathing, provider notified; pt awake, pt AXO X 0, pt not answering any questions, pt is confused reporting no understanding. 21:30 Reassessment: No changes from previously documented assessment. Patient and/or family jd3 updated on plan of care and expected duration. Pain level reassessed. family at bedside. 22:00 Reassessment: No changes from previously documented assessment. Patient and/or family jd3 updated on plan of care and expected duration. Pain level reassessed. 22:30 Reassessment: No changes from previously documented assessment. Patient and/or family jd3 updated on plan of care and expected duration. Pain level reassessed. 22:32 Reassessment: report given to Katia GARNER at [facility] in [place], [place]. jd3 22:57 General: Appears uncomfortable, Behavior is agitated, restless. Pain: Complains of pain jd3 in chest Unable to use pain scale. Does not appear to understand pain scale. Neuro: Level of Consciousness is awake, confused, Oriented to none. Cardiovascular: Heart tones S1 S2 present Pulses are all present. Rhythm is sinus rhythm with PACs. Respiratory: Reports shortness of breath Airway is patent pt still with nonrebreather in place Respiratory effort is even, labored, Respiratory pattern is regular, symmetrical. GI: Abdomen is round Reports diarrhea. : No signs and/or symptoms were reported regarding the genitourinary system. EENT: No signs and/or symptoms were reported regarding the EENT system. Derm: Skin is intact, Skin is dry, Skin is normal, Skin temperature is warm. Musculoskeletal: Circulation, motion, and sensation intact. Range of motion: intact in all extremities. Vital Signs: 20:38 BP 142 / 95; Pulse 94; Resp 30 S; Pulse Ox 93% on 15% Non-rebreather mask; Weight bb 122.47 kg; Height 6 ft. 0 in. (182.88 cm) (R); 20:43 BP 118 / 69; Pulse 90; Resp 32; Temp 97.7(C); Pulse Ox 93% on 15% Non-rebreather mask; bb 21:07 BP 126 / 78; Pulse 90; Resp 21; Temp 97.8(C); Pulse Ox 91% on 15% Non-rebreather mask; bb 21:40 BP 129 / 79; Pulse 90; Resp 20; Temp 97.6(C); Pulse Ox 92% on Nebulizer Mask; aa1 22:07 BP 124 / 84; Pulse 95; Resp 19; Temp 98.0; Pulse Ox 94% on Non-rebreather mask; jd3 22:30 BP 109 / 80; Pulse 95; Resp 20; Temp 98.0(C); Pulse Ox 94% on Non-rebreather mask; aa1 20:38 Body Mass Index 36.62 (122.47 kg, 182.88 cm) bb ED Course: 20:35 Inserted saline lock: 18 gauge in right antecubital area, using aseptic technique. bb ,using aseptic technique. by Erlinda diet tech Blood collected. 20:38 Patient arrived in ED. am2 20:40 Flores cath inserted, using sterile technique, 16 Fr., by circular head saw operator, balloon inflated, to bb gravity drainage, Patient tolerated poorly. 20:54 Abilio Gastelum MD is Attending Physician. aria 20:56 Basic Metabolic Panel Sent. jd3 20:56 CBC with Diff Sent. jd3 20:56 Ckmb Sent. jd3 20:57 CPK Sent. jd3 20:57 LFT's Sent. jd3 20:57 Magnesium Sent. jd3 20:57 NT PRO-BNP Sent. jd3 20:57 PT-INR Sent. jd3 20:57 Ptt, Activated Sent. jd3 20:57 Troponin (emerg Dept Use Only) Sent. jd3 20:59 XRAY Chest (1 view) In Process Unspecified. EDMS 21:01 Triage completed. bb 21:02 Arm band placed on. bb 21:08 Patient has correct armband on for positive identification. Placed in gown. Bed in low bb position. Call light in reach. Side rails up X2. Adult w/ patient. 21:19 Jose Luis Davidson, RN is Primary Nurse. jd3 21:33 CT Head Brain wo Cont In Process Unspecified. EDMS 22:20 Assisted with bedpan. Cleaned of incontinence. Linen changed. aa1 22:33 No provider procedures requiring assistance completed. Patient transferred, IV remains jd3 in place. 22:40 Assisted with bedpan. Cleaned of incontinence. Linen changed. aa1 22:50 Cleaned of incontinence. Linen changed. aa1 22:55 Fecal management system inserted rectally as pt has had 4+ episodes of large watery aa1 stools and is unable to control his bowels. Administered Medications: 21:45 Drug: Heparin (LA-Bolus No thrombolytic) - HEParin 60 units/kg {Co-Signature: cher aa1 (Divya Burkett RN).} Route: IVP; Site: right antecubital; 23:00 Follow up: Response: No adverse reaction; No change in condition aa1 21:45 Drug: Heparin (LA Drip) 12 units/kg/hr - (HEParin 32341 units, D5W 500 ml) aa1 {Co-Signature: cher (Divya Burkett RN).} Route: IV; Rate: calculated rate; Site: right antecubital; 23:05 Follow up: IV Status: Infusion continued upon transfer aa1 21:45 Drug: Lasix 60 mg Route: IVP; Site: right antecubital; aa1 23:00 Follow up: Response: No adverse reaction; No change in condition aa1 21:50 Drug: ProTONIX 40 mg Route: IVP; Site: right antecubital; aa1 23:00 Follow up: Response: No adverse reaction; No change in condition aa1 22:35 Drug: PlaVIX 75 mg Route: PO; aa1 23:00 Follow up: Response: No adverse reaction; No change in condition aa1 22:35 Drug: Aspirin Chewable Tablet 324 mg Route: PO; aa1 23:00 Follow up: Response: No adverse reaction; No change in condition aa1 23:00 Not Given (Other Intervention Used): Aspirin Suppository 300 mg WI once aa1 23:05 Not Given (pt left facility prior to administration): foLIC Acid 1 mg IVPB once aa1 Point of Care Testing: Blood Glucose: 21:02 Blood Glucose: 151 mg/dL; bb Ranges: Outcome: 21:39 ER care complete, transfer ordered by . [facility] 22:33 Transferred by helicopter to [facility], Transfer form completed. jd3 X-rays sent w/ patient. 22:33 Condition: stable 22:33 Instructed on the need for transfer. 23:09 Patient left the ED. aa1 Signatures: Dispatcher [employer] EDMS Bambi Garcia RN RN aa1 Abilio Gastelum MD MD cha Ballard, Brenda RN Leonila Chanel Jonathon, RN RN jherbie Burkett RN bb Corrections: (The following items were deleted from the chart) 21:05 21:02 BP 142 / 95; Pulse 94bpm; Resp 30bpm; Spontaneous; Pulse Ox 93% 02 15% bb Non-rebreather mask; 122.47 kg; Height 6 ft. 0 in. Reported; BMI: 36.6; bb
--- NOTE | 2018-02-20 21:40 | EDPHYS ---
Physician Documentation [facility] Name: Cullen Escobedo Age: 57 yrs Sex: Male : 1960 Arrival Date: 02/20/2018 Time: 20:38 Bed 3 Private MD: ED Physician Abilio Gastelum HPI: 02/20 20:56 This 57 yrs old Male presents to ER via Unassigned with complaints of aria unresponsive. 20:56 The patient presents with decreased mental status, decreased responsiveness. Onset: The aria symptoms/episode began/occurred just prior to arrival. Possible causes: unknown. Associated signs and symptoms: The patient has no apparent associated signs or symptoms. Current symptoms: In the emergency department the patient's symptoms are unchanged from the initial presentation, despite home interventions, despite EMS interventions. Patient's baseline: Neuro: alert and fully oriented. The patient has not experienced similar symptoms in the past. Historical: - Allergies: 21:02 No Known Allergies; bb - Home Meds: 23:22 Plavix 75 mg Oral tab 1 tab once daily [Active]; aa1 - PMHx: 23:22 Hypertension; Myocardial infarction; aa1 - PSHx: 23:22 Heart stents; aa1 - Immunization history:: Adult Immunizations up to date. - Social history:: Smoking status: unknown. - Family history:: not pertinent. - Ebola Screening: : No symptoms or risks identified at this time. ROS: 20:56 Unable to obtain ROS due to patient distress, patient being uncooperative. aria 21:39 Eyes: Negative for injury, pain, redness, and discharge, ENT: Negative for injury, aria pain, and discharge, Neck: Negative for injury, pain, and swelling, Back: Negative for injury and pain, : Negative for injury, bleeding, discharge, and swelling, Skin: Negative for injury, rash, and discoloration. 21:39 Constitutional: Negative for body aches, chills, fatigue, fever. Exam: 20:56 Constitutional: This is a well developed, well nourished patient who is awake, alert, aria and in no acute distress. Head/Face: Normocephalic, atraumatic. Eyes: Pupils equal round and reactive to light, extra-ocular motions intact. Lids and lashes normal. Conjunctiva and sclera are non-icteric and not injected. Cornea within normal limits. Periorbital areas with no swelling, redness, or edema. ENT: Nares patent. No nasal discharge, no septal abnormalities noted. Tympanic membranes are normal and external auditory canals are clear. Oropharynx with no redness, swelling, or masses, exudates, or evidence of obstruction, uvula midline. Mucous membranes moist. Neck: Trachea midline, no thyromegaly or masses palpated, and no cervical lymphadenopathy. Supple, full range of motion without nuchal rigidity, or vertebral point tenderness. No Meningismus. Chest/axilla: Normal chest wall appearance and motion. Nontender with no deformity. No lesions are appreciated. Cardiovascular: Regular rate and rhythm with a normal S1 and S2. No gallops, murmurs, or rubs. Normal PMI, no JVD. No pulse deficits. Respiratory: Lungs have equal breath sounds bilaterally, clear to auscultation and percussion. No rales, rhonchi or wheezes noted. No increased work of breathing, no retractions or nasal flaring. Male : Normal genitalia with no discharge or lesions. Skin: Warm, dry with normal turgor. Normal color with no rashes, no lesions, and no evidence of cellulitis. MS/ Extremity: Pulses equal, no cyanosis. Neurovascular intact. Full, normal range of motion. Psych: Awake, alert, with orientation to person, place and time. Behavior, mood, and affect are within normal limits. 20:56 Abdomen/GI: Inspection: distension, Bowel sounds: normal, Palpation: nontender, Liver: no appreciated palpable abnormalities, Hernia: not appreciated. Vital Signs: 20:38 BP 142 / 95; Pulse 94; Resp 30 S; Pulse Ox 93% on 15% Non-rebreather mask; Weight bb 122.47 kg; Height 6 ft. 0 in. (182.88 cm) (R); 20:43 BP 118 / 69; Pulse 90; Resp 32; Temp 97.7(C); Pulse Ox 93% on 15% Non-rebreather mask; bb 21:07 BP 126 / 78; Pulse 90; Resp 21; Temp 97.8(C); Pulse Ox 91% on 15% Non-rebreather mask; bb 21:40 BP 129 / 79; Pulse 90; Resp 20; Temp 97.6(C); Pulse Ox 92% on Nebulizer Mask; aa1 22:07 BP 124 / 84; Pulse 95; Resp 19; Temp 98.0; Pulse Ox 94% on Non-rebreather mask; jd3 22:30 BP 109 / 80; Pulse 95; Resp 20; Temp 98.0(C); Pulse Ox 94% on Non-rebreather mask; aa1 20:38 Body Mass Index 36.62 (122.47 kg, 182.88 cm) bb MDM: 20:54 Patient medically screened. [facility] 20:59 Data reviewed: vital signs, nurses notes, lab test result(s), EKG, radiologic studies, [facility] CT scan, plain films. 02/20 20:50 Order name: Basic Metabolic Panel; Complete Time: 21:35 [facility] 02/20 20:50 Order name: CBC with Diff; Complete Time: 21:35 [facility] 02/20 20:50 Order name: Ckmb; Complete Time: 21:35 [facility] 02/20 20:50 Order name: CPK; Complete Time: 21:35 [facility] 02/20 20:50 Order name: LFT's; Complete Time: 21:35 [facility] 02/20 20:50 Order name: Magnesium; Complete Time: 21:35 [facility] 02/20 20:50 Order name: NT PRO-BNP; Complete Time: 21:35 [facility] 02/20 20:50 Order name: PT-INR; Complete Time: 21:35 [facility] 02/20 20:50 Order name: Ptt, Activated; Complete Time: 21:35 [facility] 02/20 20:50 Order name: Troponin (emerg Dept Use Only); Complete Time: 21:35 [facility] 02/20 20:50 Order name: XRAY Chest (1 view); Complete Time: 21:35 [facility] 02/20 20:55 Order name: CT Head Brain wo Cont; Complete Time: 22:16 [facility] 02/20 20:55 Order name: ABG; Complete Time: 21:03 [facility] 02/20 21:12 Order name: Urine Dipstick--Ancillary (enter results); Complete [facility]: 21:53 [facility] 20:50 Order name: EKG; Complete Time: 20:50 [facility] 02/20 20:50 Order name: Cardiac monitoring; Complete Time: 20:57 [facility] 02/20 20:50 Order name: EKG - Nurse/Tech; Complete Time: 20:57 [facility] 02/20 20:50 Order name: IV Saline Lock; Complete Time: 20:57 [facility] 02/20 20:50 Order name: Labs collected and sent; Complete Time: 20:57 [facility] 02/20 20:50 Order name: O2 Per Protocol; Complete Time: 20:57 [facility] 02/20 21:52 Order name: BIPAP [facility] 02/20 22:30 Order name: EKG; Complete Time: 22:30 [facility] 02/20 20:50 Order name: O2 Sat Monitoring; Complete Time: 20:57 [facility] 02/20 20:50 Order name: Urine Dipstick-Ancillary (obtain specimen); Complete Time: 21:20 [facility] 02/20 20:55 Order name: Restrain Patient; Complete Time: 20:57 [facility] 02/20 22:30 Order name: EKG - Nurse/Tech; Complete Time: 23:09 [facility] Administered Medications: 21:45 Drug: Heparin (OK-Bolus No thrombolytic) - HEParin 60 units/kg {Co-Signature: cher aa1 (Divya Burkett RN).} Route: IVP; Site: right antecubital; 23:00 Follow up: Response: No adverse reaction; No change in condition aa1 21:45 Drug: Heparin (OK Drip) 12 units/kg/hr - (HEParin 85170 units, D5W 500 ml) aa {Co-Signature: cher (Divya Burkett RN).} Route: IV; Rate: calculated rate; Site: right antecubital; 23:05 Follow up: IV Status: Infusion continued upon transfer aa1 21:45 Drug: Lasix 60 mg Route: IVP; Site: right antecubital; aa1 23:00 Follow up: Response: No adverse reaction; No change in condition aa1 21:50 Drug: ProTONIX 40 mg Route: IVP; Site: right antecubital; aa1 23:00 Follow up: Response: No adverse reaction; No change in condition aa1 22:35 Drug: PlaVIX 75 mg Route: PO; aa1 23:00 Follow up: Response: No adverse reaction; No change in condition aa1 22:35 Drug: Aspirin Chewable Tablet 324 mg Route: PO; aa1 23:00 Follow up: Response: No adverse reaction; No change in condition aa1 23:00 Not Given (Other Intervention Used): Aspirin Suppository 300 mg OR once aa1 23:05 Not Given (pt left facility prior to administration): foLIC Acid 1 mg IVPB once aa1 Point of Care Testing: Blood Glucose: 21:02 Blood Glucose: 151 mg/dL; bb Ranges: Critical Glucose Levels:Adult <50 mg/dl or >400 mg/dl <40 mg/dl or >180 mg/dl Disposition: 02/20/18 21:[address] [facility]. Diagnosis are Altered mental status, unspecified, Abnormal electrocardiogram [ECG] [EKG] - left bundle, code stemi, Anoxic brain damage, not elsewhere classified - mild, Obesity, unspecified, Unspecified diastolic (congestive) heart failure. - Reason for transfer: Higher level of care. - Accepting physician is to [facility], u, code stemi. - Condition is Critical. - Problem is new. - Symptoms have improved. Signatures: Dispatcher [employer] EDMS Bambi Garcia RN RN aa1 Abilio Gastelum MD MD cha Ballard, Brenda, RN RN bb Jose Luis Davidson RN RN jd3 Divya Burkett RN bb Corrections: (The following items were deleted from the chart) 22:23 21:39 02/20/2018 21:[address] [facility]. Diagnosis is aria Altered mental status, unspecified; Abnormal electrocardiogram [ECG] [EKG] - left bundle, code stemi. Reason for transfer: Higher level of care. Accepting physician is to [facility], code stemi. Condition is Critical. Problem is new. Symptoms have improved. aria 23:09 22:23 02/20/2018 21:[address] [facility]. Diagnosis is aa1 Altered mental status, unspecified; Abnormal electrocardiogram [ECG] [EKG] - left bundle, code stemi; Anoxic brain damage, not elsewhere classified - mild; Obesity, unspecified; Unspecified diastolic (congestive) heart failure. Reason for transfer: Higher level of care. Accepting physician is to [facility], u, code stemi. Condition is Critical. Problem is new. Symptoms have improved. aria
[2018-02-20] MEDS ORDERED: PANTOPRAZOLE 40 MG INJ ONE (21:47)
[2018-02-20] MEDS ORDERED: ASPIRIN 600 MG/SUPP PR ONE (21:47)
[2018-02-20] MEDS ORDERED: HEPARIN/D5W 25,000 UNIT/500 ML BAG IV ONE (21:47)
[2018-02-20] MEDS ORDERED: HEPARIN 5000 UNIT/ML 1 ML VIAL ONE (21:47)
[2018-02-20 21:52] LABS: Urine Blood 2+ (NEG); Urine Glucose NEGATIVE (NEG); Urine Protein 3+ (NEG); Urine Specific Gravity >1.030 (1.005-1.030)
--- NOTE | 2018-02-20 21:53 | RAD REPORT ---
EXAM DESCRIPTION: CT - Head Brain Wo Cont - 02/20/2018 9:32 pm CLINICAL HISTORY: Alteration of awareness. Confusion. COMPARISON: none TECHNIQUE: Computed axial tomography of the head was obtained. IV contrast was not requested. All CT scans are performed using dose optimization technique as appropriate and may include automated exposure control or mA/KV adjustment according to patient size. FINDINGS: An intracranial bleed is not seen . The ventricles are normal in caliber. No extra-axial fluid collection is noted. The sinuses and mastoids are clear. IMPRESSION: No acute intracranial abnormality is seen. If patient's symptoms persist MRI of the bra in would be recommended.
[2018-02-20] MEDS ORDERED: FUROSEMIDE 40 MG/4 ML VIAL ONE (21:54)
[2018-02-20] MEDS ORDERED: FUROSEMIDE 20 MG/ 2ML VIAL ONE (22:04)
[2018-02-20] MEDS ORDERED: ASPIRIN 81 MG CHEWABLE TABLET ONE (22:33)
[2018-02-20] MEDS ORDERED: CLOPIDOGREL 75 MG TABLET ONE (22:33)
--- NOTE | 2018-02-21 10:55 | EKG ---
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
--- NOTE | 2018-02-21 10:55 | EKG ---
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
== END 2018-02-20 23:09 | disposition short-term general hospital (02) ==
LOC: ER 20:37
DX: I44.7 Left bundle-branch block, unspecified (principal); G93.1 Anoxic brain damage, not elsewhere classified; I50.30 Unspecified diastolic (congestive) heart failure; E66.9 Obesity, unspecified; I10 Essential (primary) hypertension; I25.2 Old myocardial infarction; Z79.01 Long term (current) use of anticoagulants; Z95.818 Presence of other cardiac implants and grafts
CPT/HCPCS: 36415; 51702; 70450; 71045; 80048; 80076; 81003; 82550; 82553; 82805; 83735; 83880; 84484; 85025; 85610; 85730; 93005; 96365; 96375; 99291; C9113; J1644; J1940; J2250